=== PATIENT | male | born 1965 | race Caucasian/White ===

== ENCOUNTER 2021-02-10 09:04 | Outpatient (CLI) | payer MEDICARE, SELFPAY ==
--- NOTE | 2021-03-01 09:55 | WPDSLEEPSTUD ---
Sleep Study Date of Study: 02/10/21 Ordering Provider: Akin Lomas MD Interpreting Physician: Yris Smith MD Height: 2.06 m Weight: 129.274 kg Body Mass Index: 30.5 Neck Circumference (inches): 18.25 [place]: 4 PMFSH Past Medical History Medical History (Updated 03/01/21 @ 10:00 by Yris Smith MD) Alcohol abuse Atrial fibrillation Congenital deafness Essential (primary) hypertension Hyperlipidemia, unspecified Impaired fasting glucose Family History Family History Father Family history of coronary artery disease Acute myocardial infarction Other Carcinoma of colon Hypertension Social History Social History (Updated 03/01/21 @ 10:01 by Yris Smith MD) Smoking status: Never smoker Alcohol intake: current Alcohol use details: 5-6 beers a day Medications Home Medications Medication Instructions Recorded Confirmed Type apixaban 5 mg tablet 5 mg PO BID 09/04/19 10/15/20 History hydrochlorothiazide 25 mg tablet 25 mg PO DAILY 09/04/19 10/15/20 History rosuvastatin 10 mg tablet 10 mg PO DAILY 09/04/19 10/15/20 History flecainide 100 mg tablet 100 mg PO Q12H #90 tablet 06/18/20 10/15/20 Rx nebivolol 20 mg tablet 20 mg PO DAILY #90 tablet 10/15/20 10/15/20 Rx lisinopril 10 mg tablet 10 mg PO DAILY 01/21/21 History telmisartan 80 mg tablet See Rx Instructions .ROUTE 02/25/21 Rx .COMPLEX #90 tablet metformin 500 mg tablet See Rx Instructions .ROUTE 03/01/21 Rx .COMPLEX #180 tablet pantoprazole 40 mg tablet,delayed See Rx Instructions .ROUTE 03/01/21 Rx release .COMPLEX #90 tablet Sleep Procedure The sleep study was completed using [employer] a technically adequate device with seven channels: peripheral arterial tone, actigraphy, body position, snore, respiratory movement, pulse oximetry, sleep staging, and heart rate. Prior to using the device, the patient received verbal and written instructions for its application and was provided with the [employer] desk phone number for additional telephonic instruction with 24-hour availability of qualified personnel to answer questions. [place] NA Periodic Limb Movements NA Oximetry Data Snoring Profile EEG Profile not applicable on a home sleep test
--- NOTE | 2021-03-01 10:05 | WPDHOMESLEEP ---
Sleep Study - Home Unattended Date of Study: 02/10/21 Ordering Provider: Akin Lomas MD Interpreting Provider: Yris Smith MD Home Sleep Study Type: Watch PAT Height: 2.06 m Weight: 129.274 kg Body Mass Index: 30.5 Neck Circumference (inches): 18.25 [place]: 4 Reason for Sleep Study Waking at night to urinate Sleep History Chet Guerrero is a 55-year-old man who wakes up 2-3 times at night to use the bathroom, and this is almost every night. 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 He rarely awakens from sleep feeling short of breath. He does not awaken at night with heartburn, belching or coughing. He does not snore and others do not complain that he snores. He rarely has trouble sleeping with a cold. He rarely wakes up gasping for breath at night. He does not have breathing problems at night observed by others. He rarely sweats excessively night. He occasionally notices his heart pounding or beating irregularly night. He occasionally falls asleep during the day but never involuntarily or while driving. He does not have loss of muscle tone was strong emotion. He does not have daytime difficulties at work due to excessive sleepiness. He does not feel paralyzed on waking or falling asleep. He occasionally has vivid dreamlike scenes upon awakening or falling asleep. He does not feel afraid to go to sleep. He occasionally has nightmares. He frequently remembers his dreams. He rarely has racing thoughts. He does not feel sad or depressed. He rarely has anxiety. He rarely has muscular tension. He occasionally notices parts of his body jerking. He rarely kicks at night, rarely has crawling and aching feelings in his legs and rarely has any kind of leg pain at night. He does not have morning jaw pain. He does not grind his teeth during sleep. He occasionally has bothered by pain during the day and is awakened by pain at night. He rarely wakes up feeling stiff in the morning with sore achy muscles or pain in the neck and spine. He has palpitations, nightmares care, alcoholism by his own evaluation as he consumes 5-6 beers a day and thinks that this may be excessive. His normal bedtime is between 10 and 11:00 p.m. falling asleep within 15-30 minutes typically waking 3 times at night to use the bathroom. When he awakens he stays awake for about half an hour. He wakes the morning at 8:00 a.m.. His weekend schedule shows that he may go to bed as late as midnight but still wakes at 8:00 a.m. He takes naps in the afternoon or evening. A short nap may be refreshing. He is drowsy in the morning for 3 hours or longer. He feels better in the afternoon. Habits: Never smoked tobacco. No caffeine. Alcohol: 5-6 beers a day. No recreational drugs. [facility] Past Medical History Medical History (Updated 03/01/21 @ 10:13 by Yris Smith MD) Alcohol abuse Atrial fibrillation Congenital deafness Essential (primary) hypertension Hyperlipidemia, unspecified Impaired fasting glucose Family History Family History Father Family history of coronary artery disease Acute myocardial infarction Other Carcinoma of colon Hypertension Social History Social History (Updated 03/01/21 @ 10:01 by Yris Smith MD) Smoking status: Never smoker Alcohol intake: current Alcohol use details: 5-6 beers a day Medications Home Medications Medication Instructions Recorded Confirmed Type apixaban 5 mg tablet 5 mg PO BID 09/04/19 10/15/20 History hydrochlorothiazide 25 mg tablet 25 mg PO DAILY 09/04/19 10/15/20 History rosuvastatin 10 mg tablet 10 mg PO DAILY 09/04/19 10/15/20 History flecainide 100 mg tablet 100 mg PO Q12H #90 tablet 06/18/20 10/15/20 Rx nebivolol 20 mg tablet 20 mg PO DAILY #90 tablet 10/15/20 10/15/20 Rx lisinopril 10 mg tablet 10 mg PO DAILY 01/21/21 History telmisartan 80 mg tablet See Rx In
[2021-03-01 10:18] VITALS: BMI 30.5
== END 2021-02-10 09:05 | disposition home or self-care (01) ==
LOC: ANHCSM 09:05
PROVIDERS: PCP Internal Medicine; Visit Provider Internal Medicine
DX: R06.83 Snoring (principal)
CPT/HCPCS: 95800